=== PATIENT | female | born 1985 | race Hispanic/Latino ===

== ENCOUNTER 2021-08-22 19:54 | Emergency (ER) | payer OTHER ==
[~2021-08-22] VITALS: Ht 165.1 cm; Wt 81.6 kg
[2021-08-22] MEDS ORDERED: HYDROXYZIN10 MG/5 ML PO (20:19)
[2021-08-22] MEDS ORDERED: HYDROXYZINE HCL25 MG PO (20:29)
[2021-08-22] MEDS ORDERED: HYDROXYZINE HCL 25 MG TAB PO SCH (20:30)
[2021-08-22] MEDS ORDERED: HYDROXYZINE HCL 25 MG TAB PO ONE (20:30)
[2021-08-22 20:35] VITALS: BP 134/82
== END 2021-08-22 20:37 | disposition home or self-care (01) ==
LOC: ER 20:17
DX: F41.9 Anxiety disorder, unspecified (principal); F41.0 Panic disorder [episodic paroxysmal anxiety]; R05.9 Cough, unspecified; R20.2 Paresthesia of skin
CPT/HCPCS: 93005; 99282; J3410

== ENCOUNTER 2022-01-31 14:44 | Inpatient (IN) | payer SELFPAY ==
[~2022-01-31] VITALS: Ht 162.6 cm; Wt 81.6 kg
[2022-01-31 00:30] VITALS: BP 134/86
[~2022-01-31 14:44] MED LIST: HYDROXYZIN10 MG/5 ML PO; HYDROXYZINE HCL25 MG PO
[2022-01-31 15:51] LABS: BASOPHILS % 0.3 % (0.0-1.0); EOSINOPHILS % 0.3 % (0.0-6.0); HEMATOCRIT 37.4 % (34.2-44.1); HEMOGLOBIN 12.2 g/dL (12.0-16.0); LYMPHOCYTES % 18.2 % (18.0-39.1); MEAN CORPUSCULAR HEMOGLOBIN 27.4 pg (28-32); MEAN CORPUSCULAR HGB CONC 32.6 g/dL (31-35); MONOCYTES # (AUTO) 0.5 (0.2-0.8); MONOCYTES % 4.2 % (4.4-11.3); NEUTROPHILS # (AUTO) 8.3 (2.1-6.9); NEUTROPHILS % 76.6 % (38.7-80.0); PLATELET COUNT 291 x10e3/uL (140-360); RED BLOOD COUNT 4.45 x10e6/uL (3.6-5.1)
[2022-01-31 16:14] LABS: ALBUMIN 4.1 g/dL (3.5-5.0); ALBUMIN/GLOBULIN RATIO 1.2 (0.8-2.0); ANION GAP 12.3 mmol/L (8-16); CALCIUM 9.2 mg/dL (8.4-10.2); CREATININE, SERUM 0.7 mg/dL (0.57-1.11); POTASSIUM 3.3 mmol/L (3.5-5.1)
[2022-01-31 16:24] LABS: CREATINE KINASE MB 1.3 ng/mL (0-5.0)
[2022-01-31] MEDS ORDERED: ONDANSETRON HCL INJ 2MG/ML 2ML 2 MG/ML VIAL IV STA (17:28)
[2022-01-31] MEDS ORDERED: Morphine 4mg Syringe 4 MG/ML INJ IV ONE (17:30)
[2022-01-31] MEDS ORDERED: Morphine 2mg Syringe 2 MG/ML SYR ONE (17:53)
[2022-01-31] MEDS ORDERED: SODIUM CHLORIDE 0.9% 50ML 50 ML ONE (17:59)
[2022-01-31] MEDS ORDERED: IOPAMIDOL 370 MG/ML 200 ML INFUS..BTL INJ ONE (18:00)
[2022-01-31] MEDS ORDERED: KETOROLAC TROMETHAMINE 30 MG/ML VIAL IV STA (18:34)
[2022-01-31] MEDS ORDERED: Morphine 4mg Syringe 4 MG/ML INJ IV PRN (19:00)
[2022-01-31] MEDS ORDERED: ASPIRIN 81 MG CHEW TAB PO ONE (19:00)
[2022-01-31] MEDS: ONDANSETRON HCL INJ 2MG/ML 2ML 2 MG/ML VIAL IV PRN (20:38)
[2022-01-31 21:00] VITALS: BP 134/86
[2022-01-31] MEDS: PROMETHAZINE 25MG/ NS 50ML (IV) IV PRN (22:53)
[2022-01-31 22:55] VITALS: BP 134/86
[2022-01-31] MEDS ORDERED: PROMETHAZINE 25MG/SOD CHL 0.9% 50 ML IV ONE (22:59)
[2022-02-01] VITALS (9 sets, daily range): BP systolic 97–134; BP diastolic 55–89
[2022-02-01 00:39] LABS: CREATINE KINASE 60 IU/L (29-168)
[2022-02-01] MEDS ORDERED: POLYETHYLENE GLYCOL 3350 17 GM PACK PO PRN (00:45)
[2022-02-01] MEDS ORDERED: METOPROLOL TARTRATE INJ 1 MG/ML VIAL IV PRN (00:45)
[2022-02-01] MEDS ORDERED: TEMAZEPAM 7.5 MG CAP PO PRN (00:45)
[2022-02-01] MEDS: ACETAMINOPHEN 325 MG TAB PO PRN ×3 (01:52→22:02)
[2022-02-01] MEDS: ONDANSETRON HCL INJ 2MG/ML 2ML 2 MG/ML VIAL IV PRN ×2 (01:53→13:38)
[2022-02-01 06:12] LABS: BASOPHILS % 0.3 % (0.0-1.0); EOSINOPHILS % 0.1 % (0.0-6.0); HEMATOCRIT 34.3 % (34.2-44.1); HEMOGLOBIN 11.2 g/dL (12.0-16.0); LYMPHOCYTES # (AUTO) 1.8 (1.0-3.2); LYMPHOCYTES % 18.2 % (18.0-39.1); MEAN CORPUSCULAR HEMOGLOBIN 27.4 pg (28-32); MEAN CORPUSCULAR HGB CONC 32.7 g/dL (31-35); MEAN CORPUSCULAR VOLUME 83.9 fL (81-99); MONOCYTES # (AUTO) 0.6 (0.2-0.8); MONOCYTES % 5.9 % (4.4-11.3); NEUTROPHILS # (AUTO) 7.4 (2.1-6.9); NEUTROPHILS % 75.1 % (38.7-80.0); PLATELET COUNT 274 x10e3/uL (140-360); RED BLOOD COUNT 4.09 x10e6/uL (3.6-5.1); RED CELL DISTRIBUTION WIDTH 12.9 % (11.7-14.4)
[2022-02-01 06:28] LABS: ALBUMIN 3.6 g/dL (3.5-5.0); ALBUMIN/GLOBULIN RATIO 1.2 (0.8-2.0); ANION GAP 11.5 mmol/L (8-16); CALCIUM 8.5 mg/dL (8.4-10.2); CREATININE, SERUM 0.72 mg/dL (0.57-1.11); MAGNESIUM 1.8 MG/DL (1.3-2.1); PHOSPHORUS 3.8 MG/DL (2.3-4.7); POTASSIUM 3.5 mmol/L (3.5-5.1)
[2022-02-01 06:52] LABS: THYROID STIMULATING HORMONE 2.063 uIU/mL (0.350-4.940)
[2022-02-01 07:08] LABS: CLARITY,URINE CLEAR (CLEAR); COLOR,URINE YELLOW (YELLOW); KETONES,URINE 1+ (NEGATIVE); LEUKOCYTE ESTERASE ,URINE NEGATIVE (NEGATIVE); NITRITE,URINE NEGATIVE (NEGATIVE); PROTEIN,URINE DIPSTICK NEGATIVE (NEGATIVE); URINE UROBILINOGEN 0.2 mg/dL (0.2 - 1)
[2022-02-01 07:29] LABS: BACTERIA,URINE MODERATE /HPF; EPITHELIAL CELLS,URINE MODERATE /LPF; WBC,URINE (MAN) 0-5 /HPF (0-5)
[2022-02-01] MEDS: FAMOTIDINE 20 MG TAB PO SCH ×2 (09:23→19:37)
[2022-02-01] MEDS: DOCUSATE SODIUM 100 MG CAP PO SCH ×2 (09:23→19:37)
[2022-02-01 11:08] LABS: CREATINE KINASE MB 0.9 ng/mL (0-5.0)
[2022-02-01] MEDS ORDERED: SODIUM CHLORIDE 0.9% 250ML 250 ML ONE (13:20)
[2022-02-01] MEDS: PROMETHAZINE 25MG/ NS 50ML (IV) IV PRN (13:38)
[2022-02-01] MEDS ORDERED: KETOROLAC TROMETHAMINE 30 MG/ML VIAL IV STA (13:48)
[2022-02-01] MEDS ORDERED: KETOROLAC TROMETHAMINE 30 MG/ML VIAL IV ONE (14:30)
[2022-02-01] MEDS ORDERED: LIDOCAINE 4% PATCH TP SCH (18:00)
[2022-02-02 02:02] VITALS: BP 106/71
[2022-02-02 05:46] VITALS: BP 98/67
[2022-02-02 06:15] LABS: BASOPHILS % 0.4 % (0.0-1.0); EOSINOPHILS % 0.5 % (0.0-6.0); HEMATOCRIT 36.9 % (34.2-44.1); HEMOGLOBIN 11.7 g/dL (12.0-16.0); LYMPHOCYTES % 24.9 % (18.0-39.1); MEAN CORPUSCULAR HEMOGLOBIN 27.4 pg (28-32); MEAN CORPUSCULAR HGB CONC 31.7 g/dL (31-35); MEAN CORPUSCULAR VOLUME 86.4 fL (81-99); MONOCYTES # (AUTO) 0.4 (0.2-0.8); MONOCYTES % 5.2 % (4.4-11.3); NEUTROPHILS # (AUTO) 5.4 (2.1-6.9); NEUTROPHILS % 68.6 % (38.7-80.0); PLATELET COUNT 274 x10e3/uL (140-360); RED BLOOD COUNT 4.27 x10e6/uL (3.6-5.1); RED CELL DISTRIBUTION WIDTH 13.2 % (11.7-14.4)
[2022-02-02 06:34] LABS: ALBUMIN 3.5 g/dL (3.5-5.0); ALBUMIN/GLOBULIN RATIO 1.1 (0.8-2.0); ANION GAP 9.4 mmol/L (8-16); CALCIUM 8.6 mg/dL (8.4-10.2); CREATININE, SERUM 0.85 mg/dL (0.57-1.11); POTASSIUM 3.4 mmol/L (3.5-5.1)
[2022-02-02 07:50] VITALS: BP 118/73
[2022-02-02 08:05] VITALS: BP 118/73
[2022-02-02] MEDS ORDERED: POTASSIUM CHLORIDE 20 MEQ TAB CR PO STA (08:32)
[2022-02-02] MEDS ORDERED: LIDOCAINE 4% PATCH TP SCH (09:00)
[2022-02-02] MEDS: FAMOTIDINE 20 MG TAB PO SCH (11:15)
[2022-02-02] MEDS: DOCUSATE SODIUM 100 MG CAP PO SCH (11:15)
[2022-02-02 11:25] VITALS: BP 129/77
[2022-02-02] MEDS ORDERED: Lidocaine Patch TP (13:11)
[2022-02-02] MEDS ORDERED: ULTRAM50 MG PO (13:11)
== END 2022-02-02 14:24 | disposition home or self-care (01) | DRG 313 ==
LOC: ER 15:00 → ERHOLD 19:04 → MED/SURG3 23:11 → OBSVTOIN 02-02 08:47
PROVIDERS: ADMIT Internal Medicine; ATTEND Internal Medicine
DX: R07.2 Precordial pain (principal); R42 Dizziness and giddiness; F41.9 Anxiety disorder, unspecified; E66.9 Obesity, unspecified; Z68.30 Body mass index [BMI] 30.0-30.9, adult; Z20.822 Contact with and (suspected) exposure to COVID-19; M25.511 Pain in right shoulder
CPT/HCPCS: 36415; 70450; 71045; 71260; 72141; 80053; 80061; 81001; 82550; 82553; 83036; 83735; 84100; 84443; 84484; 84702; 85025; 93005; 93306; 93880; 93971; 94799; 99284; G0378; J1885; J2270; J2405; J2550; J7050; Q9967; U0002